=== PATIENT | male | born 1955 | race Caucasian/White ===

== ENCOUNTER 2017-09-08 07:45 | Day surgery (SDC) | payer OTHER ==
[~2017-09-08] VITALS: Ht 182.9 cm; Wt 84.8 kg
[~2017-09-08 07:45] MED LIST: FISH OIL1000 MG PO; MULTI VIT PO; VITAMIN E400 UNIT PO
[2017-09-08] MEDS ORDERED: PERCOCET 5/325M1 TAB PO (10:08)
[2017-09-08 10:50] VITALS: BP 130/90
== END 2017-09-08 11:05 | disposition home or self-care (01) | DRG 355 ==
LOC: ORM 07:45
PROVIDERS: ATTEND Surgery
PROC: 0WQF0ZZ Repair Abdominal Wall, Open Approach (ICD-10-PCS; principal; 2017-09-08)
DX: K42.9 Umbilical hernia without obstruction or gangrene (principal); X50.0XXA Overexertion from strenuous movement or load, initial encounter; Y93.89 Activity, other specified; Y92.89 Other specified places as the place of occurrence of the external cause; Y99.0 Civilian activity done for income or pay
CPT/HCPCS: J1100; J2710

== ENCOUNTER 2018-01-09 08:07 | Emergency (ER) | payer SELFPAY ==
[~2018-01-09] VITALS: Ht 182.9 cm; Wt 85.0 kg
[~2018-01-09 08:07] MED LIST changes: +PERCOCET 5/325M1 TAB PO
[2018-01-09 08:37] VITALS: BP 118/63
== END 2018-01-09 08:38 | disposition home or self-care (01) | DRG 125 ==
LOC: ED 08:07
PROC: 08CPXZZ Extirpation of Matter from Left Upper Eyelid, External Approach (ICD-10-PCS; principal; 2018-01-09)
DX: T15.82XA Foreign body in other and multiple parts of external eye, left eye, initial encounter (principal); X58.XXXA Exposure to other specified factors, initial encounter

== ENCOUNTER 2018-10-26 10:10 | Day surgery (SDC) | payer BC ==
[~2018-10-26] VITALS: Ht 182.9 cm; Wt 84.8 kg
[2018-10-26] MEDS ORDERED: MULTI VIT PO (10:45)
[2018-10-26] MEDS ORDERED: VITAMI16 PO (10:46)
[2018-10-26] MEDS ORDERED: CALCI23 PO (10:46)
[2018-10-26] MEDS ORDERED: VITAMIN7 PO (10:46)
[2018-10-26] MEDS ORDERED: CINNAMON500 MG PO (10:47)
[2018-10-26] MEDS ORDERED: VITAMIN B 650 MG PO (10:47)
[2018-10-26] MEDS ORDERED: FISH OIL1 CAP PO (10:48)
[2018-10-26] MEDS ORDERED: PERCOCET 5/325M1 TAB PO (12:33)
[2018-10-26 12:59] VITALS: BP 99/62
== END 2018-10-26 12:40 | disposition home or self-care (01) | DRG 572 ==
LOC: ORM 10:10
PROVIDERS: ATTEND Surgery
PROC: 0JB70ZZ Excision of Back Subcutaneous Tissue and Fascia, Open Approach (ICD-10-PCS; principal; 2018-10-26)
PROC: 0HB0XZZ Excision of Scalp Skin, External Approach (ICD-10-PCS; 2018-10-26)
DX: D17.1 Benign lipomatous neoplasm of skin and subcutaneous tissue of trunk (principal); L72.11 Pilar cyst

== ENCOUNTER 2018-12-05 14:44 | Emergency (ER) | payer BC ==
[~2018-12-05] VITALS: Ht 182.9 cm; Wt 75.0 kg
[~2018-12-05 14:44] MED LIST changes: +CALCI23 PO; +CINNAMON500 MG PO; +FISH OIL1 CAP PO; +VITAMI16 PO; +VITAMIN B 650 MG PO; +VITAMIN7 PO
[2018-12-05 15:33] VITALS: BP 118/66
== END 2018-12-05 15:36 | disposition home or self-care (01) | DRG 563 ==
LOC: ED 14:44
PROC: 2W3EX1Z Immobilization of Right Hand using Splint (ICD-10-PCS; principal; 2018-12-05)
DX: S62.306A Unspecified fracture of fifth metacarpal bone, right hand, initial encounter for closed fracture (principal); W22.8XXA Striking against or struck by other objects, initial encounter; Y93.89 Activity, other specified; Y92.009 Unspecified place in unspecified non-institutional (private) residence as the place of occurrence of the external cause

== ENCOUNTER 2018-12-17 07:34 | Emergency (ER) | payer BC ==
[~2018-12-17] VITALS: Ht 182.9 cm; Wt 84.5 kg
[2018-12-17 08:11] LABS: HEMATOCRIT 41.1 % (39.0-50.0); HEMOGLOBIN 14.1 g/dl (14.0-18.0); IMMATURE GRANULOCYTES 0.3 % (0.0-5.0); MEAN CELL VOLUME 92.2 fL CALC (80.0-100.0); MEAN CORPUSCULAR HGB 31.6 pG CALC (26.0-32.0); MEAN CORPUSCULAR HGB CONC 34.3 g/L CALC (32.0-36.0); NEUT# 4.57 thou/uL (1.82-7.42); RED BLOOD COUNT 4.46 mill/uL (4.70-6.10); RED CELL DISTRI WIDTH 12.9 % (11.5-15.5)
[2018-12-17 08:17] LABS: ALBUMIN 3.8 g/dL (3.2-5.0); ALKALINE PHOSPHATASE 73 u/l (38-126); ANION GAP 11 (6-22 (CALC)); BILIRUBIN, TOTAL 0.5 mg/dL (0.0-1.4); BUN 16 mg/dL (8-23); BUN/CREATININE RATIO 20 (12-20 (CALC)); CARBON DIOXIDE 27 mmol/l (22-30); CHLORIDE 108 mmol/l (95-108); CREATININE 0.8 mg/dL (0.7-1.3); GFR > 60 ML/MIN (>=60 (CALC)); GFR FOR AFR.AMER. > 60 ML/MIN (>=60 (CALC)); LIPASE 163 u/l (23-300); POTASSIUM 4.1 mmol/l (3.5-5.1); SGOT/AST 19 u/l (19-48); SODIUM 143 mmol/l (137-146); TOTAL PROTEIN 6.6 g/dL (6.3-8.2)
[2018-12-17] MEDS ORDERED: TRAMADOL HYDROC50 MG PO (08:34)
[2018-12-17] MEDS ORDERED: MOTRIN400 MG PO (08:34)
[2018-12-17] MEDS ORDERED: TAMSULOSIN0.4 MG PO (08:34)
[2018-12-17] MEDS ORDERED: CEPHALEXIN500 M1 PO (08:34)
[2018-12-17] MEDS ORDERED: ONDANSETRON4 MG PO (08:34)
[2018-12-17 08:39] LABS: URINE BILIRUBIN - DIPSTICK NEGATIVE (NEGATIVE); URINE BLOOD DIPSTICK MODERATE (NEGATIVE); URINE COLOR YELLOW; URINE GLUCOSE - DIPSTICK NEGATIVE (NEGATIVE); URINE KETONE NEGATIVE (NEGATIVE); URINE LEUK ESTERASE NEGATIVE (NEGATIVE); URINE NITRITE - DIPSTICK NEGATIVE (Negative); URINE PH 6.5 (4.5-8.0); URINE PROTEIN - DIPSTICK NEGATIVE (NEG-TRACE); URINE SPECIFIC GRAVITY 1.015; URINE UROBILINOGEN - DIPSTICK 0.2 E.U./dL (0.2)
[2018-12-17 08:48] LABS: URINE WBC 0-2 WBC/hpf (0-5)
[2018-12-17 09:15] VITALS: BP 145/78
== END 2018-12-17 09:15 | disposition home or self-care (01) | DRG 694 ==
LOC: ED 07:34
PROVIDERS: Family Medicine
DX: N20.1 Calculus of ureter (principal); I86.8 Varicose veins of other specified sites

== ENCOUNTER 2019-04-08 20:24 | Emergency (ER) | payer BC ==
[~2019-04-08] VITALS: Ht 182.9 cm; Wt 86.0 kg
[~2019-04-08 20:24] MED LIST changes: +CEPHALEXIN500 M1 PO; +MOTRIN400 MG PO; +ONDANSETRON4 MG PO; +TAMSULOSIN0.4 MG PO; +TRAMADOL HYDROC50 MG PO
[2019-04-08] MEDS ORDERED: PERCOCET 5/325M1 TAB PO (21:55)
[2019-04-08] MEDS ORDERED: KEFLEX500 M1 PO (21:55)
[2019-04-08 22:45] VITALS: BP 124/86
[2019-06-22] MEDS ORDERED: NAPROXEN500 MG PO (17:57)
[2019-06-22] MEDS ORDERED: BACTRIM DS1 TAB PO (17:57)
== END 2019-04-08 22:50 | disposition home or self-care (01) | DRG 563 ==
LOC: ED 20:24
PROC: 2W3QX1Z Immobilization of Right Lower Leg using Splint (ICD-10-PCS; principal; 2019-04-08)
DX: S82.851A Displaced trimalleolar fracture of right lower leg, initial encounter for closed fracture (principal); S91.031A Puncture wound without foreign body, right ankle, initial encounter; Y04.0XXA Assault by unarmed brawl or fight, initial encounter

== ENCOUNTER 2019-06-22 | Emergency (ER) | payer SELFPAY ==
[~2019-06-22] MED LIST changes: +KEFLEX500 M1 PO
[2019-06-22] MEDS ORDERED: FERR SULFATE325 MG PO (16:25)
[2019-06-22] MEDS ORDERED: NIACIN250 M4 PO (16:26)
[2019-06-22 17:17] LABS: HEMOGLOBIN 14.5 g/dl (14.0-18.0); IMMATURE GRANULOCYTES 0.2 % (0.0-5.0); MEAN CELL VOLUME 94.7 fL CALC (80.0-100.0); MEAN CORPUSCULAR HGB 31.9 pG CALC (26.0-32.0); MEAN CORPUSCULAR HGB CONC 33.7 g/L CALC (32.0-36.0); NEUT# 5.78 thou/uL (1.82-7.42); RED BLOOD COUNT 4.54 mill/uL (4.70-6.10); RED CELL DISTRI WIDTH 12.8 % (11.5-15.5)
[2019-06-22 17:39] LABS: ALBUMIN 4.1 g/dL (3.2-5.0); ALKALINE PHOSPHATASE 92 u/l (38-126); ANION GAP 12 (6-22 (CALC)); BILIRUBIN, TOTAL 0.5 mg/dL (0.0-1.4); BUN 11 mg/dL (8-23); BUN/CREATININE RATIO 20 (12-20 (CALC)); CARBON DIOXIDE 25 mmol/l (22-30); CHLORIDE 107 mmol/l (95-108); CREATININE 0.6 mg/dL (0.7-1.3); GFR > 60 ML/MIN (>=60 (CALC)); GFR FOR AFR.AMER. > 60 ML/MIN (>=60 (CALC)); POTASSIUM 4.2 mmol/l (3.5-5.1); SGOT/AST 23 u/l (19-48); SODIUM 140 mmol/l (137-146); TOTAL PROTEIN 7.2 g/dL (6.3-8.2)
[2019-06-22] MEDS ORDERED: NAPROXEN500 MG PO ×2 (17:57)
[2019-06-22] MEDS ORDERED: CEPHALEXIN500 MG PO (17:57)
[2019-06-22] MEDS ORDERED: BACTRIM DS1 TAB PO ×2 (17:57)
== END 2019-06-22 18:03 | disposition home or self-care (01) | DRG 603 ==
PROVIDERS: Emergency Medicine
DX: L03.116 Cellulitis of left lower limb (principal)

== ENCOUNTER 2019-11-21 09:15 | Emergency (ER) | payer BC ==
[~2019-11-21] VITALS: Ht 182.9 cm; Wt 65.0 kg
[~2019-11-21 09:15] MED LIST changes: +BACTRIM DS1 TAB PO; +CEPHALEXIN500 MG PO; +FERR SULFATE325 MG PO; +NAPROXEN500 MG PO; +NIACIN250 M4 PO
[2019-11-21] MEDS ORDERED: BACTRIM DS1 TAB PO ×3 (09:50→10:46)
[2019-11-21] MEDS ORDERED: CEPHALEXIN500 M1 PO (10:46)
[2019-11-21 10:50] VITALS: BP 129/64
== END 2019-11-21 10:50 | disposition home or self-care (01) | DRG 603 ==
LOC: ED 09:15
PROC: 0H98XZZ Drainage of Buttock Skin, External Approach (ICD-10-PCS; principal; 2019-11-21)
DX: L02.31 Cutaneous abscess of buttock (principal)

== ENCOUNTER 2020-06-05 10:30 | Emergency (ER) | payer BC ==
[~2020-06-05] VITALS: Ht 182.9 cm; Wt 86.8 kg
[2020-06-05 11:52] LABS: HEMATOCRIT 44.6 % (39.0-50.0); HEMOGLOBIN 15.3 g/dl (14.0-18.0); IMMATURE GRANULOCYTES 0.4 % (0.0-5.0); MEAN CELL VOLUME 94.9 fL CALC (80.0-100.0); MEAN CORPUSCULAR HGB 32.6 pG CALC (26.0-32.0); MEAN CORPUSCULAR HGB CONC 34.3 g/dL CAL (32.0-36.0); NEUT# 3.1 thou/uL (1.82-7.42); RED BLOOD COUNT 4.7 mill/uL (4.70-6.10); RED CELL DISTRI WIDTH 12.2 % (11.5-15.5)
[2020-06-05 12:03] LABS: ANION GAP 14 (6-22 (CALC)); BUN 14 mg/dL (8-23); BUN/CREATININE RATIO 22 (12-20 (CALC)); CARBON DIOXIDE 26 mmol/l (22-30); CHLORIDE 107 mmol/l (95-108); CREATININE 0.7 mg/dL (0.7-1.3); GFR > 60 ML/MIN (>=60 (CALC)); GFR FOR AFR.AMER. > 60 ML/MIN (>=60 (CALC)); POTASSIUM 4.7 mmol/l (3.5-5.1); SODIUM 142 mmol/l (137-146)
[2020-06-05 12:41] VITALS: BP 146/81
== END 2020-06-05 12:47 | disposition left against medical advice (07) | DRG 313 ==
LOC: ED 10:30
PROVIDERS: Family Medicine
DX: R07.9 Chest pain, unspecified (principal); R00.2 Palpitations; Z91.19 Patient's noncompliance with other medical treatment and regimen; Z20.822 Contact with and (suspected) exposure to COVID-19

== ENCOUNTER 2020-12-14 12:49 | Emergency (ER) | payer BC ==
[~2020-12-14] VITALS: Ht 182.9 cm; Wt 86.3 kg
[~2020-12-14 12:49] MED LIST changes: +VITAMIN C500 M6 PO
[2020-12-14] MEDS ORDERED: GENTAK0.32 OS (13:40)
[2020-12-14 13:46] VITALS: BP 138/68
== END 2020-12-14 13:46 | disposition home or self-care (01) | DRG 115 ==
LOC: ED 12:49
PROC: 08C9XZZ Extirpation of Matter from Left Cornea, External Approach (ICD-10-PCS; principal; 2020-12-14)
DX: T15.02XA Foreign body in cornea, left eye, initial encounter (principal); X58.XXXA Exposure to other specified factors, initial encounter; Y93.89 Activity, other specified

== ENCOUNTER 2020-12-20 06:30 | Day surgery (SDC) | payer BC ==
[~2020-12-20 06:30] MED LIST changes: +GENTAK0.32 OS
[2020-12-20 08:30] VITALS: BP 148/69
== END 2020-12-20 08:44 | disposition home or self-care (01) | DRG 951 ==
LOC: ENDO 06:30
PROVIDERS: ATTEND Surgery
PROC: 0DBM8ZX Excision of Descending Colon, Via Natural or Artificial Opening Endoscopic, Diagnostic (ICD-10-PCS; principal; 2020-12-20)
PROC: 0DBN8ZX Excision of Sigmoid Colon, Via Natural or Artificial Opening Endoscopic, Diagnostic (ICD-10-PCS; 2020-12-20)
DX: Z12.11 Encounter for screening for malignant neoplasm of colon (principal); K57.30 Diverticulosis of large intestine without perforation or abscess without bleeding; D12.4 Benign neoplasm of descending colon; K63.5 Polyp of colon

== ENCOUNTER 2021-01-27 18:26 | Emergency (ER) | payer BC ==
[~2021-01-27] VITALS: Ht 182.9 cm; Wt 90.0 kg
[2021-01-27] MEDS ORDERED: ATIVAN1 MG PO (19:39)
[2021-01-27 19:56] VITALS: BP 122/73
== END 2021-01-27 19:56 | disposition home or self-care (01) | DRG 179 ==
LOC: ED 18:26
DX: U07.1 COVID-19 (principal); G47.00 Insomnia, unspecified

== ENCOUNTER 2022-08-23 18:26 | Emergency (ER) | payer MEDICARE ==
[~2022-08-23] VITALS: Ht 182.9 cm; Wt 86.3 kg
[2022-08-23] VITALS (7 sets, daily range): BP systolic 122–157; BP diastolic 74–87
[~2022-08-23 18:26] MED LIST changes: +ATIVAN1 MG PO
[2022-08-23 20:08] LABS: BASO% 0.6 % (0-3); EOS% 2.1 % (0-8); HEMATOCRIT 43.2 % (39.0-50.0); HEMOGLOBIN 14.4 g/dl (14.0-18.0); IMMATURE GRANULOCYTES 0.1 % (0.0-5.0); LYMPH% 25.2 % (15-41); MEAN CELL VOLUME 95.6 fL CALC (80.0-100.0); MEAN CORPUSCULAR HGB 31.9 pG CALC (26.0-32.0); MEAN CORPUSCULAR HGB CONC 33.3 g/dL CAL (32.0-36.0); MONO% 7.3 % (2-13); NEUT# 4.53 thou/uL (1.82-7.42); NEUT% 64.7 % (42-76); RED BLOOD COUNT 4.52 mill/uL (4.70-6.10); RED CELL DISTRI WIDTH 12.3 % (11.5-15.5)
[2022-08-23 20:17] LABS: ALBUMIN 4.3 g/dL (3.2-5.0); ALKALINE PHOSPHATASE 101 u/l (38-126); ANION GAP 10 (6-22 (CALC)); BILIRUBIN, TOTAL 0.6 mg/dL (0.2-1.3); BUN 14 mg/dL (8-23); BUN/CREATININE RATIO 15 (12-20 (CALC)); CARBON DIOXIDE 27 mmol/l (22-30); CHLORIDE 109 mmol/l (95-108); CREATININE 0.9 mg/dL (0.7-1.3); GFR FOR AFR.AMER. > 60 ML/MIN (>=60 (CALC)); GFR OTHER RACES > 60 ML/MIN (>=60 (CALC)); POTASSIUM 3.9 mmol/l (3.5-5.1); SGOT/AST 34 u/l (19-48); SODIUM 142 mmol/l (137-146); TOTAL PROTEIN 7.2 g/dL (6.3-8.2)
[2022-08-23] MEDS ORDERED: MEDDOSEPAK PO (21:19)
== END 2022-08-23 22:39 | disposition left against medical advice (07) ==
LOC: ED 18:26 → ED-I 21:45 → ED 22:39
PROVIDERS: Emergency Medicine
DX: T54.3X1A Toxic effect of corrosive alkalis and alkali-like substances, accidental (unintentional), initial encounter (principal); R06.02 Shortness of breath; Y92.002 Bathroom of unspecified non-institutional (private) residence as the place of occurrence of the external cause; Z53.29 Procedure and treatment not carried out because of patient's decision for other reasons; Z86.16 Personal history of COVID-19; Z20.822 Contact with and (suspected) exposure to COVID-19

== ENCOUNTER 2023-11-10 11:54 | Emergency (ER) | payer MEDICARE ==
[~2023-11-10] VITALS: Ht 182.9 cm; Wt 86.0 kg
[~2023-11-10 11:54] MED LIST changes: +MEDDOSEPAK PO
[2023-11-10 12:04] VITALS: BP 135/84
[2023-11-10] MEDS ORDERED: Diph, Acellular Pertussis, Tet 0.5 ML/VIAL (Tdap) SDV IM ONE (12:10)
[2023-11-10] MEDS ORDERED: CEPHALEXIN500 M1 PO (12:11)
[2023-11-10] MEDS ORDERED: MUPIROCIN21 TOP (12:13)
[2023-11-10] MEDS ORDERED: MUPIROCIN (PSEUDOMONAS FLUORES 22 GM/TUBE TUBE TOP ONE (12:15)
[2023-11-10] MEDS ORDERED: NAPROXEN500 MG PO (13:13)
[2023-11-10 14:04] VITALS: BP 135/86
[2023-11-10 14:05] VITALS: BP 135/86
== END 2023-11-10 14:05 | disposition home or self-care (01) ==
LOC: ED 11:54
PROC: 2W3FX1Z Immobilization of Left Hand using Splint (ICD-10-PCS; principal; 2023-11-10)
DX: S62.651A Nondisplaced fracture of middle phalanx of left index finger, initial encounter for closed fracture (principal); S61.211A Laceration without foreign body of left index finger without damage to nail, initial encounter; S60.512A Abrasion of left hand, initial encounter; W22.09XA Striking against other stationary object, initial encounter; Y93.89 Activity, other specified; Z86.16 Personal history of COVID-19